=== PATIENT | female | born 1970 | race Asian ===

== ENCOUNTER 2018-09-01 14:37 | Emergency (ER) | payer SELFPAY ==
--- NOTE | 2018-09-01 15:27 | EDPHY ---
H & P Time Seen by Provider: 09/01/18 15:10 HPI/ROS: HPI Lower abdominal pain. 48-year-old female. She is [place]. She is here with family. She just arrived in this country on Tuesday. She presents to the emergency department with complaint of suprapubic discomfort with radiation to the mid lower back, slightly greater on the left side, described as an achy sharp discomfort, ongoing for a week. She has also had some mild discomfort at the end of urination. No diarrhea. No nausea or vomiting. Last bowel movement was this morning. No bloody or melenic stool. Last menstrual period was 6 weeks ago. She is usually very regular so she was 2 weeks late at this time. ROS: Constitutional: No fever, no chills. No weakness. Eyes: No discharge. No changes in vision. ENT: No sore throat. No nasal congestion or rhinorrhea. Respiratory: No cough. No shortness of breath. Cardiac: No chest pain, no palpitations. Gastrointestinal: As above, no vomiting, no diarrhea. Genitourinary: No hematuria. As above. No vaginal bleeding. No vaginal discharge. Musculoskeletal: As above. No neck pain. No myalgias or arthralgias. Skin: No rashes. Neurological: No headache. No focal weakness or altered sensation. Past medical history: Cervical polyps with surgical removal. Ovarian cyst. Social history: Nonsmoker. No alcohol. She is with family. As above. Physical Exam: General Appearance: Alert, no distress. This patient is responding to questions appropriately and in full sentences. This patient appears well- hydrated and well-nourished. Eyes: Pupils equal and round no pallor or injection. No lid edema, erythema or injection. Respiratory: There are no retractions, lungs are clear to auscultation with good air movement bilaterally. Cardiovascular: Regular rate and rhythm. No murmur. Gastrointestinal: Abdomen is soft with mild and vague suprapubic tenderness on palpation with mild tenderness left adnexal, no masses, bowel sounds normal. No focal tenderness at McBurney's point. No Willis sign. Neurological: Motor sensory function is grossly intact. Cranial nerves are normal. Gait is normal. Skin: Warm and dry, no rashes. Musculoskeletal: No CVA tenderness on palpation bilaterally. No midline thoracic, lumbar, sacral tenderness on palpation. Extremities are symmetrical. All joints range without pain or impingement. Psychiatric: No agitation. No depression. Database: Urinalysis is unremarkable. Urine is negative. EKG: Imaging: Pelvic ultrasound: Small fibroids. Otherwise negative. No evidence of torsion or other pathology. Results were discussed with staff radiologist Dr. Ernesto Greenwood. Procedures: Emergency department course: Triage vital signs reviewed and are normal. She is afebrile. Urinalysis obtained. The patient is not . She does not have evidence of infection. Results of these test discussed with her. Pelvic ultrasound to be obtained to evaluate for ovarian cyst. Her presentation is consistent with an ovarian cyst. 5:10 p.m., the patient was re-evaluated, she is resting comfortably at this time. Repeat abdominal exam she is soft with mild suprapubic tenderness on palpation. I discussed the results of her urinalysis as well as ultrasound with her and her family. She does feel comfortable going home at this time. I discussed ibuprofen dosing for pain medication. I will have her follow up with a primary care physician as well as an OBGYN for re-evaluation and to establish relationships with these physicians for her ongoing care. She feels comfortable going home and comfortable with this plan. Return to emergency department precautions were reviewed with her. All of her questions were answered. She was discharged from the emergency department in good condition. Differential Diagnosis: The differential diagnosis on this patient includes but is not limited to appendicitis, volvulus, tubo-ovarian abscess, urinary tract infection, pyelonephritis, ectopic , ovarian torsion unlikely. This represents a partial list of diagnoses considered. These considerations are based on history , physical exam, past history, reassessment and diagnostic testing. Smoking Status: Never smoked Constitutional: Initial Vital Signs Temperature (C) 36.6 C 09/01/18 15:03 Heart Rate 93 09/01/18 15:03 Respiratory Rate 18 09/01/18 15:03 Blood Pressure 131/81 H 09/01/18 15:03 O2 Sat (%) 99 09/01/18 15:03 O2 Delivery Mode Room Air Allergies/Adverse Reactions: No Known Allergies Allergy (Unverified 09/01/18 15:02) Home Medications: Medication Instructions Recorded NK [No Known Home Meds] 09/01/18 Medical Decision Making - Diagnostics Imaging Results: Imaging Impressions Pelvic/Renal Ultrasound 03/01/19 15:22 Impression: Fibroid uterus. Findings and recommendations discussed with Bar Espana MD at 5:00 PM hour, 09/01/2018. Final report concurs with initial preliminary interpretation. - Data Points Medications Given: Discontinued Medications Ibuprofen (Motrin) 600 mg PO EDNOW ONE Stop: 09/01/18 15:32 Last Admin: 09/01/18 15:31 Dose: 600 mg Point of Care Test Results: Urine Collection Date 09/01/18 Collection Time 15:05 HCG Results Negative Urine Dip Collection Date 09/01/18 Collection Time 15:05 Specific [place] (1.002-1.030) 1.010 PH (5.0-7.5) 7.0 Leukocytes (Negative) Negative Nitrites (Negative) Negative Protein (Negative) Negative Glucose (Negative) Negative Ketones (Negative) Negative Urobilnogen (0.2-1.0 EU) 0.2 Bilirubin (Negative) Negative Blood (Negative) 1+ Departure - Departure Disposition: Home, Routine, Self-Care Clinical Impression: Lower abdominal pain, Uterine fibroid Condition: Good Instructions: Acute Abdominal Pain (ED) Additional Instructions: Read and follow provided instructions. I provided you with contact information for [facility]. Call their office on Tuesday morning to set up an appointment next week for re- evaluation and establishment of a primary care physician relationship. I have also provided you a referral to an OBGYN for your ongoing Women's Care needs. You should also call on Tuesday for follow-up appointment next week. Ibuprofen dosin mg every 6 hours with meals for the next 3 days only. Take only as needed for pain. Return to the emergency department for worsening pain, fever, vomiting, bleeding or other serious concerns. Referrals: [facility] [Provider Group] - As per Instructions Suzanne Mcgraw DO [Doctor of Osteopathy] - As per Instructions
[2018-09-01] MEDS ORDERED: IBUPROFEN 600 MG TAB PO ONE ×2 (15:30→15:31)
[2018-09-01 17:48] VITALS: BP 128/76
== END 2018-09-01 17:25 | disposition home or self-care (01) ==
LOC: CED 14:37
DX: D25.9 Leiomyoma of uterus, unspecified (principal)
CPT/HCPCS: 76856-PO; 99284-ER